=== PATIENT | male | born 1990 ===

== ENCOUNTER 2023-05-15 23:32 | Emergency (ER) | payer OTHER, SELFPAY ==
--- NOTE | 2023-05-15 23:50 | ED_ITS ---
HPI - General Adult General Stated complaint: etoh Time Seen by Provider: 05/15/23 23:47 Source: patient, RN notes reviewed and old records reviewed Mode of arrival: EMS Limitations: no limitations History of Present Illness HPI narrative: 33-year-old male presents for evaluation of ?I do not know why the ag equipment field service technician brought me here. ? Patient states that he does drink alcohol frequently and admits to drinking alcohol today He states that he was walking on the street and ?I do not know what happened, they just brought me here. ? He reports that he did not get into any altercations, he did not hurt himself in any way. He has no thoughts of harming himself or anybody else He reports that he feels well He is requesting to be discharged Review of Systems Constitutional: Constitutional: Denies body ache(s), Denies chills, Denies fever(s) and Denies headache(s) Eyes: Eyes: Denies blurry vision ENT: Denies vertigo and Denies headache(s) Cardiovascular: Cardiovascular: Denies chest pain and Denies dyspnea Respiratory: Respiratory: Denies chest congestion, Denies cough and Denies dyspnea Gastrointestinal: Gastrointestinal: Denies abdominal pain, Denies nausea and Denies vomiting Musculoskeletal: Musculoskeletal: Denies back pain Integumentary/Breasts: Skin/Breast: Denies rash Neurologic: Denies vertigo and Denies headache(s) Physical Exam ED Const General: healthy appearing, comfortable, no acute distress, alert and awake Nutritional Appearance: well nourished Orientation/consciousness: patient oriented x3 HENMT Head: Yes normocephalic and Yes atraumatic Eyes Eyelids: Yes eyelids normal Conjunctivae: conjunctivae normal Sclerae: sclerae normal Corneas: corneas normal Pupils: Equal, round and reactive pupils present EOM: EOMs intact bilaterally Neck Neck: Yes full ROM Resp Effort & Inspection: normal respiratory effort, able to speak in complete sentences and not labored Skin General skin exam: elasticity normal Neuro General: patient oriented x3 Cranial nerves: Yes Equal, round and reactive pupils present and Yes Bilaterally intact EOM present Cognition (Neuro): normal cognition Extrem Other: Moving all extremities well without any obvious deformities Medical Decision Making Medical Decision Making MDM Narrative: 33-year-old male presents for evaluation for reported alcohol abuse. He denies any injury to himself, he has no complaints, he is not depressed or suicidal. The patient is somewhat irritated but is cooperative and follows all instructions. He is cooperative with basic exam to prove capacity to make his own medical decisions. He is requesting discharge. I see no reason to keep him in the hospital against his will. The patient will be discharged he ambulates with a steady gait. Differential Diagnosis Differential Diagnoses: The differential diagnosis associated with the presentation includes Alcohol abuse Substance abuse Agitation Polysubstance abuse Discharge Plan Discharge Clinical Impression: Alcohol intoxication Patient Disposition: Home, Self-Care Instructions: Abuse of Alcohol (ED) Additional Instructions: Avoid excessive consumption of alcohol Return to the ER if you have any new or worsening concerns Follow-up with your primary doctor
[2023-05-16 00:06] VITALS: BP 158/60; PULSE 98; O2SAT 98; BMI 22.5
--- NOTE | 2023-05-16 00:15 | PC.NURSE ---
Pt brought in by ambulance because him and female friend were intoxicated. Pt is alert and oriented x4, not from this area. Pt denies any pain or injuries but wants to leave. Pt refused vitals and being rude. Pt seen by Kurt BAUER. Discharge paperwork put in and pt waiting for friend in waiting room.
== END 2023-05-16 00:15 | disposition home or self-care (01) ==
PROVIDERS: Emergency Provider Internal Medicine
DX: F10.129 Alcohol abuse with intoxication, unspecified (principal)
CPT/HCPCS: 99282; 99283